=== PATIENT | female | born 1985 | race Caucasian/White ===

== ENCOUNTER 2016-11-19 10:57 | Day surgery (SDC) | payer BC ==
--- NOTE | 2016-11-10 11:43 | GHP ---
[f rep st] PREOP HISTORY AND PHYSICAL PLANNED PROCEDURE: Laparoscopic bilateral salpingectomy for family planning. INDICATIONS: Patient is a 31-year-old, 1, para 0-0-1-0, who does not plan on having any children. She and her are on the same page of this and they have both been extensively counseled on management options of contraception and want to proceed with a laparoscopic bilateral salpingectomy. Risks and benefits of the procedure were reviewed extensively with the patient , and patient has been properly consented. MEDICAL HISTORY: None. MEDICATIONS: Gildess. SURGICAL HISTORY: Arthroscopy x2 with meniscectomy, wisdom teeth extraction. ALLERGIES: No known drug allergies. SOCIAL HISTORY: Patient is . She denies tobacco or drug use. She does drink 4-5 alcoholic beverages a week. She works as a neuro lan engineer. FAMILY MEDICAL HISTORY: Noncontributory. OPTICAL EFFECTS LINE UP PERSON HISTORY: Menarche age 12. Periods every 21 days, lasting 4 days. She is a 1, para 0-0-1-0, and the patient had a voluntary termination of in 2010. Patient conceived that while on control pills. It was a medical termination. The patient denies any history of any abnormal Pap smears or sexually transmitted diseases. PHYSICAL EXAM: VITAL SIGNS: Stable. GENERAL APPEARANCE: She is alert and oriented x3. Her heart rate is regular. LUNGS: Clear to auscultation bilaterally. ABDOMEN: Soft, nondistended, nontender. EXTREMITIES: Reveal no calf tenderness or edema. PELVIC: Reveals a mobile and mid position uterus with no adnexal masses. ASSESSMENT AND PLAN: A 31-year-old, 1, para 0-0-1-0, who desires permanent sterilization. She has been extensively counseled on all other options and is electing to proceed with a laparoscopic salpingectomy. Risks and benefits of the procedure included risks of bleeding, infection, damage to the bowel, bladder, or major blood vessels, need for additional procedures including additional surgeries and surgery failure have been discussed extensively. The patient has been properly consented. /[id number]/MODL MTDD
[~2016-11-19 10:57] MED LIST: BUPIVACAINE 0.25% 30 ML SDV ONE
[2016-11-19] MEDS ORDERED: LIDOCAINE 1% 5 ML SDV ONE (11:07)
[2016-11-19] MEDS ORDERED: MIDAZOLAM 2 MG/2 ML VIAL ONE (12:30)
[2016-11-19] MEDS ORDERED: fentaNYL 100 MCG/2 ML INJ ONE (12:38)
[2016-11-19] MEDS ORDERED: REMIFENTANIL HCL 1 MG VIAL ONE (12:39)
[2016-11-19] MEDS ORDERED: PROPOFOL/EMULSION 500 MG/50 ML BOTTLE IV ONE (12:39)
[2016-11-19] MEDS ORDERED: LIDOCAINE HCL 160 MG/4 ML LTA KIT TP ONE (12:42)
[2016-11-19] MEDS ORDERED: LIDOCAINE 2% 100 MG/5 ML SYR IVP ONE (12:44)
[2016-11-19] MEDS ORDERED: ROCURONIUM 50 MG/5 ML VIAL ONE (12:44)
[2016-11-19] MEDS ORDERED: ONDANSETRON 4 MG/2 ML VIAL ONE (13:07)
[2016-11-19] MEDS ORDERED: DEXAMETHASONE 4 MG/ML VIAL ONE ×2 (13:07)
[2016-11-19] MEDS ORDERED: SUGAMMADEX SODIUM 200 MG/2 ML VIAL IVP ONE (13:27)
[2016-11-19] MEDS ORDERED: SILVER NITRATE APPLICATOR 1 APPL TP ONE (13:31)
--- NOTE | 2016-11-19 14:38 | GOP ---
[f rep st] OPERATIVE REPORT DATE OF OPERATION: 11/19/2016 SURGEON: Caitlin Chavez DO ANESTHESIA: General endotracheal tube. ANESTHESIOLOGIST: Myles Riddle MD. PREOPERATIVE DIAGNOSIS: Family status complete. POSTOPERATIVE DIAGNOSIS: Family status complete. PROCEDURE PERFORMED: Laparoscopic bilateral salpingectomy. FINDINGS: 1. Mobile mid position uterus with no adnexal masses. 2. Laparoscopic findings: Unremarkable ovaries, uterus, and tubes with the exception that the right ovary is somewhat adherent to the right lower pelvic sidewall. SPECIMENS: Bilateral fallopian tubes. ESTIMATED BLOOD LOSS: 10 cc. INDICATIONS: The patient is a 31-year-old 1, para 0-0-1-0, who has a history of a voluntary termination of after an accidental while on control pills. The patient sta gregorio that she does not want to have any children and is electing to proceed with a laparoscopic tubal ligation. Alternative control options were reviewed extensively with the patient, as well as t he failure rate of laparoscopic salpingectomy. Risks and benefits were reviewed extensively with the patient, and the patient was properly consented. DESCRIPTION OF PROCEDURE: The patient was taken to the operating room with intravenous fluids in valerie ce. She was placed on the operating room table in the dorsal supine position, where general anesthes ia was obtained. She was then repositioned into the dorsal lithotomy position with the Yellofin stir rups and prepped and draped in the normal sterile fashion. Exam under anesthesia revealed a mobile m id position uterus with no adnexal masses. A speculum was then placed in the patient's vagina. An A llis clamp was used to grasp the anterior lip of the cervix, and an acorn uterine manipulator was the n introduced without difficulty. After gloves were changed, attention was then turned to the patient 's abdomen, where she was injected with Marcaine in the umbilicus, and a 5 mm skin incision was then made in the umbilicus. A 5 mm laparoscope was then introduced into the patient's abdomen under direc t visualization. The area underneath the trocar insertion site was unremarkable. The abdomen was th en insufflated with CO2 gas until an adequate pneumoperitoneum was achieved. Ovaries, uterus, and tu bes were unremarkable. Upper abdomen and appendix were also unremarkable. Two additional ports were placed in the bilateral lower quadrants just superior and medial to the ASIS. These 5 mm ports were placed after being injected with Marcaine and done under direct visualization. The left fallopian t ube was then identified, grasped at the fimbriated end, and was excised as close to the fallopian tub e as possible up to the cornual region of the uterus. This was withdrawn through the fallopian tube. Attention was then turned to the patient's right side, where the right fallopian tube was then gras ped at the fimbriated end and excised as close to the fallopian tube as possible. This specimen was then withdrawn through the fallopian tube. The right ovary was noted to be adherent to the posterior cul-de-sac, and initial attempts to mobilize this were unsuccessful, so it was left in place. Bilat eral ureters were identified following the procedure and noted to be remote from the surgical site an d peristalsing. The CO2 gas was then turned off. CO2 gas was expressed from the patient's abdomen. The trocars were removed without difficulty. The skin was then closed with 4-0 Monocryl in a subcut icular fashion, and Band-Aids were applied. Attention was then turned to the patient's vagina. The Allis clamp was removed from the cervix, and the acorn uterine manipulator was also withdrawn. A sma ll amount of bleeding was noted, so hemostasis was achieved with silver nitrate sticks. The patient was then returned to the dorsal supine position. Sponge, lap, and needle counts were correct x2. Th e patient was transported to recovery room in stable condition. /[id number]/MODL
== END 2016-11-19 15:10 | disposition home or self-care (01) ==
LOC: FSGY 10:57
PROVIDERS: ATTEND Obstetrics & Gynecology
PROC: 0UT74ZZ Resection of Bilateral Fallopian Tubes, Percutaneous Endoscopic Approach (ICD-10-PCS; principal; 2016-11-19 12:30)
DX: Z30.2 Encounter for sterilization (principal)
CPT/HCPCS: J1100; J2001; J2250; J2405; J2704; J3010